=== PATIENT | male | born 1985 | race Caucasian/White ===

== ENCOUNTER 2021-01-14 19:36 | Emergency (ER) | payer OTHER ==
[~2021-01-14] VITALS: Ht 172.7 cm; Wt 117.9 kg
--- NOTE | 2021-01-14 19:37 | NUR ---
PT AAOX4. BIBFRIEND C/O HAVING SUDDEN BACK PAIN AFTER HEARING A "POP" PT PLACED IN BED 3 ON MONITOR AND PULSE OX. VSS. AWAITING EVAL AND ORDERS.
[2021-01-14] MEDS ORDERED: DEXAMETHASONE SOD PHOSPHATE 10 MG/ML VIAL ONE (20:06)
[2021-01-14] MEDS ORDERED: KETOROLAC TROMETHAMINE INJ 60 MG/2 ML VIAL IM ONE ×2 (20:06→20:30)
[2021-01-14] MEDS ORDERED: CYCLOBENZAPRINE 10 MG TABLET ONE (20:07)
--- NOTE | 2021-01-14 20:16 | NUR ---
RADIOLOGY AT BEDSIDE
[2021-01-14] MEDS ORDERED: DEXAMETHASONE SOD PHOSPHATE 4 MG/ML VIAL IM ONE (20:30)
[2021-01-14] MEDS ORDERED: CYCLOBENZAPRINE 10 MG TABLET PO ONE (20:30)
[2021-01-14] MEDS ORDERED: CYCL10TA9 PO (21:43)
[2021-01-14] MEDS ORDERED: IBUP-1955 PO (21:43)
[2021-01-14 21:55] VITALS: BP 110/79
--- NOTE | 2021-01-14 21:55 | NUR ---
Patient discharged to home in stable condition. Written and verbal after care instructions given. Patient verbalizes understanding of instruction.Pt ambulatory with a steady gait
== END 2021-01-14 21:56 | disposition home or self-care (01) ==
LOC: EDSEX 19:43 → ER 19:43
DX: M54.5 Low back pain (principal); I10 Essential (primary) hypertension; E78.5 Hyperlipidemia, unspecified; E11.9 Type 2 diabetes mellitus without complications; Z79.899 Other long term (current) drug therapy
CPT/HCPCS: 72110; 96372 ×2; 99284; J1100; J1885

== ENCOUNTER 2021-06-16 18:11 | Emergency (ER) | payer OTHER ==
[~2021-06-16] VITALS: Ht 172.7 cm; Wt 117.9 kg
[~2021-06-16 18:11] MED LIST: CYCL10TA9 PO; IBUP-1955 PO
[2021-06-16 18:28] VITALS: BP 124/81
[2021-06-16] MEDS ORDERED: RALT400T PO (18:41)
[2021-06-16] MEDS ORDERED: EMTR1TAB12 PO (18:41)
[2021-06-16] MEDS ORDERED: TENOFOVIR DISOPROXIL FUMARATE 300 MG TABLET PO ONE (19:00)
[2021-06-16] MEDS ORDERED: EMTRICITABINE 200 MG CAPSULE PO ONE (19:00)
[2021-06-16] MEDS ORDERED: EMTRICITABINE/TENOFOVIR 1 TAB PO ONE (19:00)
[2021-06-16] MEDS ORDERED: RALTEGRAVIR POTASSIUM 400 MG TABLET PO ONE (19:00)
--- NOTE | 2021-06-16 20:02 | NUR ---
Patient discharged to home in stable condition. Written and verbal after care instructions given. Patient verbalizes understanding of instruction. pt ambulatory with a steady gait
[2021-06-16 20:22] LABS: ALBUMIN 4.5 g/dL (3.4-5.0); BILIRUBIN,DIRECT 0.1 mg/dL (0.0-0.2); BILIRUBIN,TOTAL 0.4 mg/dL (0.2-1.0); TOTAL PROTEIN, SERUM 8.2 g/dL (6.4-8.2)
== END 2021-06-16 20:02 | disposition home or self-care (01) ==
LOC: ER 18:17
DX: Z20.828 Contact with and (suspected) exposure to other viral communicable diseases (principal); I10 Essential (primary) hypertension; E78.5 Hyperlipidemia, unspecified; E11.9 Type 2 diabetes mellitus without complications; Z79.899 Other long term (current) drug therapy
CPT/HCPCS: 36415; 80076-TC